=== PATIENT | female | born 1995 | race Caucasian/White ===

== ENCOUNTER 2021-02-07 10:19 | Outpatient (CLI) | payer BC, SELFPAY ==
[2021-02-07 13:30] LABS: Erythrocyte Sedimentation Rate 7 mm/hr (0-20)
[2021-02-07 13:42] LABS: Thyroid Stimulating Hormone 0.408 uIU/mL (0.465-4.680)
[2021-02-09 19:08] LABS: Thyroid Peroxidase Antibodies 1 IU/mL (<9)
[2021-02-10 14:59] LABS: Thyrotropin Receptor Antibody 1.53 IU/L (<=2.00)
== END 2021-02-07 10:20 | disposition home or self-care (01) ==
LOC: ANHWCLAB 10:24
PROVIDERS: PCP Internal Medicine Endocrinology, Diabetes & Metabolism; Visit Provider Internal Medicine Endocrinology, Diabetes & Metabolism
DX: R79.89 Other specified abnormal findings of blood chemistry (principal)
CPT/HCPCS: 36415; 83519; 84439; 84443; 84480; 85652; 86376

== ENCOUNTER 2021-03-31 11:13 | Outpatient (CLI) | payer BC, SELFPAY ==
[2021-03-31 17:32] LABS: Free T4 Free Thyroxine 1.13 ng/mL (0.78-2.19)
[2021-03-31 17:43] LABS: Thyroid Stimulating Hormone 0.745 uIU/mL (0.465-4.680); Total Triiodothyronine (T3) 1.14 NG/ML (0.97-1.69)
== END 2021-03-31 11:14 | disposition home or self-care (01) ==
PROVIDERS: PCP Internal Medicine Endocrinology, Diabetes & Metabolism; Visit Provider Internal Medicine Endocrinology, Diabetes & Metabolism
DX: E05.90 Thyrotoxicosis, unspecified without thyrotoxic crisis or storm (principal)
CPT/HCPCS: 36415; 84439; 84443; 84480

== ENCOUNTER 2021-11-17 15:30 | Outpatient (RCR) | payer BC, SELFPAY | END 2022-01-09 14:20 | disposition home or self-care (01) | LOC: ANHDMC 15:30 | PROVIDERS: PCP Nurse Practitioner Family; Visit Provider Nurse Practitioner Family | DX: E10.65 Type 1 diabetes mellitus with hyperglycemia (principal); Z71.89 Other specified counseling | CPT/HCPCS: G0108 ==